=== PATIENT | female | born 1975 | race Caucasian/White ===

== ENCOUNTER 2017-02-18 19:19 | Emergency (ER) | payer BC ==
[~2017-02-18] VITALS: Ht 175.3 cm; Wt 59.3 kg
[2017-02-18 19:52] LABS: BLOOD UREA NITROGEN 9 mg/dL (7-18)
[2017-02-18 20:21] VITALS: BP 125/99
== END 2017-02-18 21:58 | disposition home or self-care (01) ==
LOC: ED 21:15
DX: G43.909 Migraine, unspecified, not intractable, without status migrainosus (principal)
CPT/HCPCS: 36415; 70450; 70551; 80048; 82040; 85025